=== PATIENT | male | born 1990 | race Caucasian/White ===

== ENCOUNTER 2017-04-13 19:28 | Emergency (ER) | payer MEDICAID ==
[~2017-04-13 19:28] MED LIST: DICL75 PO; HYDR-3533 PO
[2017-04-13 19:29] VITALS: BP 137/66; PULSE 70; RESP 16; TEMP 97.7; O2SAT 99
--- NOTE | 2017-04-14 20:03 | PD ---
HPI Chief Complaint: Oral / Dental Pain or Problem Time Seen by Provider: 20:10 Travel History International Travel<30 days: No Contact w/Intl Traveler<30days: No Traveled to known affect area: No History of Present Illness HPI Pt is a 26-year-old male presenting with a possible dental abscess. He states it started draining earlier this afternoon. No fevers, Pain increased after it popped. Patient is not tender to contact his dentist. Pain is exacerbated with chewing or movement. There is no alleviating factors. Onset was gradual. PFSH Past Medical History Blood Disorders: No Cardiovascular Problems: Yes (HEART MURMUR) Diminished Hearing: No Kidney Stones: Yes Social History Alcohol Use: No Tobacco Use: Yes (04/07 PPD) Substance Use: No Allergies-Medications (Allergen,Severity, Reaction): Coded Allergies: acetaminophen (Unverified Allergy, Severe, Itching, 11/18/16) ipratropium (Unverified Allergy, Severe, swelling, 11/18/16) oxycodone (Unverified Allergy, Severe, Itching, 11/18/16) Reported Meds & Prescriptions Reported Meds & Active Scripts Active Lortab 5 mg/325 mg (Hydrocodone/Acetaminophen 5 mg/325 mg) 1 Tab 1 Tab PO Q6H PRN Diclofenac Sodium 75 Mg Tab 75 Mg PO BID 20 Days Review of Systems Except as stated in HPI: all other systems reviewed are Neg HENT: Positive: Dental Difficulties Physical Exam Narrative GENERAL: Well-developed, well-nourished, alert male. Presenting in no acute distress. SKIN: Warm and dry. HEAD: Normocephalic. EYES: No scleral icterus. No injection or drainage. CARDIOVASCULAR: Regular rate RESPIRATORY: No accessory muscle use. Data Data Last Documented VS Vital Signs Date Time Temp Pulse Resp B/P (MAP) Pulse Ox O2 Delivery O2 Flow Rate FiO2 04/13/17 19:29 97.7 70 16 137/66 (89) 99 Room Air MDM Medical Decision Making Medical Screen Exam Complete: Yes Emergency Medical Condition: Yes Interpretation(s) Vital Signs Date Time Temp Pulse Resp B/P (MAP) Pulse Ox O2 Delivery O2 Flow Rate FiO2 04/13/17 19:29 97.7 70 16 137/66 (89) 99 Room Air Differential Diagnosis Dental abscess versus dental caries versus dentalgia versus cellulitis versus other Narrative Course Patient is a 26-year-old well-appearing male presenting for evaluation of possible dental abscess. Patient's vital signs are stable, he is awaiting bed placement. Patient was called to be bedded, he was no longer in the emergency department. AMA: The risks of leaving against medical advice without further evaluation treatment were discussed with the patient. These risks include cardiac dysfunction, cardiac dysrhythmia, possible heart attack, possible stroke or . The patient indicated understanding of these risks and appeared to have the capacity to make this decision. Diagnosis Primary Impression: Left against medical advice Disposition: 07 AGAINST MEDICAL ADVICE Shelley Rodriguez Apr 14, 2017 20:02
== END 2017-04-13 23:41 | disposition left against medical advice (07) ==
LOC: NED 19:28
DX: K08.89 Other specified disorders of teeth and supporting structures (principal); R01.1 Cardiac murmur, unspecified; F17.200 Nicotine dependence, unspecified, uncomplicated; Z87.442 Personal history of urinary calculi; Z88.6 Allergy status to analgesic agent; Z88.5 Allergy status to narcotic agent
CPT/HCPCS: 99281